=== PATIENT | male | born 1945 | race Caucasian/White ===

== ENCOUNTER 2023-10-05 13:24 | Outpatient (CLI) | payer MEDICARE | END 2023-10-05 13:25 | disposition home or self-care (01) | LOC: CT 13:24 | PROVIDERS: ATTEND Internal Medicine Cardiovascular Disease | DX: R07.9 Chest pain, unspecified (principal); E27.8 Other specified disorders of adrenal gland | CPT/HCPCS: 71275 ==

== ENCOUNTER 2024-03-22 12:29 | Outpatient (CLI) | payer MEDICARE | END 2024-03-22 12:30 | disposition home or self-care (01) | LOC: BICMRI 12:29 | PROVIDERS: ATTEND Psychiatry & Neurology Neurology | DX: G20.A1 Parkinson's disease without dyskinesia, without mention of fluctuations (principal); I67.89 Other cerebrovascular disease | CPT/HCPCS: 36415; 70553; 82565 ==

== ENCOUNTER 2025-01-30 12:04 | Emergency (ER) | payer MEDICARE ==
[2025-01-30 13:06] LABS: #Basophils 0.06 10x3/uL (0.0-0.2); #Eosinophils 0.04 10x3/uL (0.0-0.7); #Monocytes 0.43 10x3/uL (0.11-0.59); #Neutrophils 5.88 10x3/uL (1.40-6.50); %Basophils 0.7 % (0.0-1.0); %Eosinophils 0.5 % (0.0-10.0); %Lymphocytes 23.7 % (21.0-51.0); %Monocytes 5.1 % (0.0-10.0); %Neutrophils 69.4 % (42.0-75.0); Hematocrit 45.2 % (42.0-52.0); Hemoglobin 14.2 g/dL (14.0-18.0); Mean Corpuscular Hemoglobin 28.5 pg (27.0-31.0); Mean Corpuscular Volume 90.6 fL (78.0-98.0); Platelet Count 274 10x3/uL (130-400); Red Blood Cell (RBC) Count 4.99 mill/uL (4.70-6.10); White Blood Cell (WBC) Count 8.47 10x3/uL (4.8-10.8)
[2025-01-30 13:22] LABS: ALT (SGPT) Less than 7 U/L (Less than 45); AST (SGOT) 39 U/L (11-34); Albumin 4.6 g/dL (3.1-4.5); Alkaline Phosphatase 139 U/L (40-110); Anion Gap 16 mmol/L (10-20); BUN (Urea Nitrogen) 35 mg/dL (8.4-25.7); Bilirubin, Total 0.6 mg/dL (0.3-1.2); Calc. Creatinine Clearance 0 mL/min (70-130); Calcium 9.6 mg/dL (7.8-10.44); Carbon Dioxide 24 mmol/L (23-31); Chloride 106 mmol/L (98-107); Globulin 3.1 g/dL (2.4-3.5); Glucose 87 mg/dL (83-110); Potassium 4.7 mmol/L (3.5-5.1); Sodium 141 mmol/L (136-145)
[2025-01-30 13:56] LABS: Glucose, Urine (Dipstick) Normal (Negative); Leukocyte 500 Leu/uL (Negative); Protein, Urine (Dipstick) 50 mg/dL (Neg-Trace); RBC/HPF 21-50 HPF (0-3); Specific Gravity, Urine 1.019 (1.002-1.036); WBC/HPF Greater than 50 HPF (0-3)
[2025-01-30 13:57] LABS: Bacteria/HPF 1+ HPF (None Seen)
[2025-01-30 13:58] LABS: Urine Culture Reflex Yes Yes
== END 2025-01-30 15:26 | disposition home or self-care (01) ==
LOC: ERS 12:04
DX: I12.9 Hypertensive chronic kidney disease with stage 1 through stage 4 chronic kidney disease, or unspecified chronic kidney disease (principal); N18.9 Chronic kidney disease, unspecified; R31.9 Hematuria, unspecified; Z79.899 Other long term (current) drug therapy
CPT/HCPCS: 36415; 71045; 80053; 81001; 84484; 85025; 87077; 87086; 93005